=== PATIENT | male | born 1950 | race Caucasian/White ===

== ENCOUNTER → 2018-11-27 | Outpatient (CLI) | payer BC, MEDICARE | END | disposition home or self-care (01) | LOC: PLD 14:19 → LAB SHORT 14:19 | DX: D48.5 Neoplasm of uncertain behavior of skin (principal) | CPT/HCPCS: 88305 ==

== ENCOUNTER → 2019-05-28 | Outpatient (CLI) | payer BC, MEDICARE | END | disposition home or self-care (01) | LOC: LAB SHORT 11:41 → PLD 11:41 | DX: D22.5 Melanocytic nevi of trunk (principal) | CPT/HCPCS: 88305 ==

== ENCOUNTER 2019-10-10 16:37 | Observation (INO) | payer BC, MEDICARE ==
[~2019-10-10] VITALS: Ht 200.7 cm; Wt 125.1 kg
[2019-10-10] MEDS ORDERED: ELIQUIS5 M3 PO (16:47)
[2019-10-10] MEDS ORDERED: ESCI20 PO (16:47)
[2019-10-10] MEDS ORDERED: CENTRUM SILVER1 EAC2 PO (16:48)
[2019-10-10] MEDS ORDERED: DILT60ER PO (16:48)
[2019-10-10] MEDS ORDERED: TAMS.4ER PO (16:48)
[2019-10-10] MEDS ORDERED: ATOR40TA PO (16:48)
[2019-10-10 17:16] LABS: BASOPHILS ABSOLUTE AUTO 0.05 K/mm3 (0.00-0.23); BASOPHILS PERCENT AUTO 1 % (0-2); EOSINOPHILS ABSOLUTE AUTO 0.13 K/mm3 (0.00-0.68); EOSINOPHILS PERCENT AUTO 2 % (0-6); Hematocrit 46.9 % (37.0-53.0); Hemoglobin 15.3 g/dL (13.5-17.5); IMMATURE GRAN ABSOLUTE AUTO 0.03 K/mm3 (0.00-0.10); IMMATURE GRAN PERCENT AUTO 0 % (0-1); LYMPHOCYTES ABSOLUTE AUTO 2.68 K/mm3 (0.84-5.20); LYMPHOCYTES PERCENT AUTO 32 % (21-46); MONOCYTES ABSOLUTE AUTO 0.62 K/mm3 (0.16-1.47); MONOCYTES PERCENT AUTO 7 % (4-13); Mean Corpuscular HGB 30.4 pg (26.0-34.0); Mean Corpuscular HGB Conc 32.6 g/dL (31.5-36.5); Mean Corpuscular Volume 93 fL (80-100); Mean Platelet Volume 10.6 fL (9.1-12.4); NEUTROPHILS ABSOLUTE AUTO 4.85 K/mm3 (1.96-9.15); NEUTROPHILS PERCENT AUTO 58 % (41-73); Platelet Count 210 K/mm3 (150-400); RDW Coefficient Variation 12.9 % (11.7-14.2); RDW Standard Deviation 44.1 fL (35.1-46.3); Red Blood Cell Count 5.03 M/mm3 (4.30-5.90); White Blood Cell Count 8.36 K/mm3 (4.00-11.30)
[2019-10-10 17:31] LABS: International Normalized Ratio 1.13; Prothrombin Time Results 11.8 Sec (9.7-11.5)
[2019-10-10 17:39] LABS: Anion Gap 4 mmol/L (6-16); Blood Urea Nitrogen 21 mg/dL (8-24); Bun/Creatinine Ratio 20.2 (12.0-20.0); CO2, Blood 29 mmol/L (21-32); Calcium, Blood 9.1 mg/dL (8.5-10.1); Chloride, Blood 106 mmol/L (98-108); Creatinine, Blood 1.04 mg/dL (0.60-1.20); Glomerular Filtration Rate >60 (60-); Glucose, Blood 125 mg/dL (70-99); Potassium, Blood 3.8 mmol/L (3.5-5.5); Sodium, Blood 139 mmol/L (136-145)
--- NOTE | 2019-10-10 18:55 | NUR ---
PT ARRIVED TO VIA GURNEY. TNX'D TO BED INDEPENDENTLY. PT ORIENTED TO . PT'S DARIELA AT BEDSIDE. PT IS IN VERY GOOD SPIRITS, DENIES PAIN AT THIS TIME. PT ALERT/ORIENTED X3. ANSWERS ALL QUESTIONS APPROPRIATELY. MAEW. FOLLOWS COMMANDS. PT IS HYPERTENSIVE AT THIS TIME. REPORTS HE TOOK ALL HIS SCHEDULED MEDICATIONS THIS AM, BUT STILL NEEDS HE HS CARDIAC MEDS. A COPY OF THE MEDICATION LIST WAS TAKEN AND GIVEN TO LOGAN DURING REPORT HAND OFF. RT NECK CLEAN/DRY. ONLY SMALL SCAB OVER NAIL ENTRANCE SITE. NO BLEEDING/SWELLING/HEMATOMA NOTED AT THIS TIME. SITE SOFT/STABLE. 1909-REPORTED OFF TO LOGAN AND HE IS NOW ASSUMING CARE OF THIS PT.
--- NOTE | 2019-10-10 20:35 | NUR ---
ASSUMED CARE OF PT AT 1900. REPORT RECEIVED IN ROOM. PT PRESENTS IN ROOM STANDING AT BEDSIDE. NO ALTERATION IN GAIT. NO COMPROMISE TO AIRWAY OR SWALLOW AT THIS TIME. WOUND FROM PENETRATING INJURY NOT COVERED TO ALLOW OBSERVATION. PT ALERT AND ORIENTED. PLEASANT AND COOPERATIVE WITH CARE AND ASSESSMENT. DENIES PAIN AT THIS TIME. DOES HAVE ELEVATED BLOOD PRESSURE. AT BEDSIDE WHOM IS AN RN. BOTH PT AND [employer] DURING ASSESSMENT AND INTERVIEW. WILL REVIEW CHART AND PLAN OF CARE FOR THIS PT.
--- NOTE | 2019-10-11 | NUR ---
PT CONTINUES WITHOUT DYSPHAGIA. NO AIRWAY COMPROMISE. MINIMAL SWELLING AROUND PUNCTURE WOUND AT RIGHT SIDE OF NECK. PT ABLE TO HAVE CLEAR SPEACH PATTERN. WILL CONTINUE TO MONITOR.
--- NOTE | 2019-10-11 03:10 | NUR ---
ICE PACK PROVIDED EARLIER TO HELP DECREASE TENDERNESS OF WOUND SITE. REMAINS WITHOUT DEFICIT TO SWALLOW OR BREATHING.
== END 2019-10-11 09:35 | disposition home or self-care (01) ==
LOC: ER 16:37 → ICUW 16:38 → ICUE 18:57
PROVIDERS: Physician Assistant; ADMIT Surgery
DX: S11.94XA Puncture wound with foreign body of unspecified part of neck, initial encounter (principal); I48.91 Unspecified atrial fibrillation; I10 Essential (primary) hypertension; F41.9 Anxiety disorder, unspecified; C44.90 Unspecified malignant neoplasm of skin, unspecified; G89.29 Other chronic pain; M54.9 Dorsalgia, unspecified; Z79.01 Long term (current) use of anticoagulants; Z79.899 Other long term (current) drug therapy; W29.4XXA Contact with nail gun, initial encounter
CPT/HCPCS: 70498; 80048; 85025; 85610; 85730; 86850; 86900; 86901; 96372; 99285-25; G0378; Q9967

== ENCOUNTER → 2019-11-26 | Outpatient (CLI) | payer BC, MEDICARE ==
[~2019-11-26] MED LIST: ATOR40TA PO; CENTRUM SILVER1 EAC2 PO; DILT60ER PO; ELIQUIS5 M3 PO; ESCI20 PO; TAMS.4ER PO
== END | disposition home or self-care (01) ==
LOC: PLD 11:33 → LAB SHORT 11:33
DX: C44.612 Basal cell carcinoma of skin of right upper limb, including shoulder (principal)
CPT/HCPCS: 88305

== ENCOUNTER → 2020-01-23 | Outpatient (CLI) | payer BC, MEDICARE | END | disposition home or self-care (01) | LOC: LAB SHORT 13:11 → PLD 13:11 | DX: C44.612 Basal cell carcinoma of skin of right upper limb, including shoulder (principal); L81.4 Other melanin hyperpigmentation; L57.0 Actinic keratosis | CPT/HCPCS: 88305; 88342 ==

== ENCOUNTER → 2020-07-24 | Outpatient (CLI) | payer BC, MEDICARE | END | disposition home or self-care (01) | LOC: PLD 08:31 → LAB SHORT 08:31 | DX: D48.5 Neoplasm of uncertain behavior of skin (principal) | CPT/HCPCS: 88305 ==

== ENCOUNTER → 2021-07-27 | Outpatient (CLI) | payer BC, MEDICARE | END | disposition home or self-care (01) | LOC: LAB SHORT 11:18 | DX: D48.5 Neoplasm of uncertain behavior of skin (principal) | CPT/HCPCS: 88305 ==

== ENCOUNTER → 2022-01-25 | Outpatient (CLI) | payer BC, MEDICARE | END | disposition home or self-care (01) | LOC: LAB SHORT 11:19 → LAB 11:19 | DX: C44.519 Basal cell carcinoma of skin of other part of trunk (principal); L81.4 Other melanin hyperpigmentation | CPT/HCPCS: 88305 ==

== ENCOUNTER → 2022-07-27 | Outpatient (CLI) | payer BC, MEDICARE | LOC: PLD 11:32 → LAB SHORT 11:32 | DX: L82.1 Other seborrheic keratosis (principal); L57.8 Other skin changes due to chronic exposure to nonionizing radiation; C44.519 Basal cell carcinoma of skin of other part of trunk | CPT/HCPCS: 88305 ==

== ENCOUNTER → 2022-08-16 | Outpatient (CLI) | payer BC, MEDICARE | END | disposition home or self-care (01) | LOC: LAB SHORT 08:24 → PLD 08:24 | DX: C44.519 Basal cell carcinoma of skin of other part of trunk (principal) | CPT/HCPCS: 88305 ==

== ENCOUNTER 2023-02-26 16:01 | Emergency (ER) | payer BC, MEDICARE ==
[~2023-02-26] VITALS: Ht 200.7 cm; Wt 132.9 kg
[2023-02-26 16:36] LABS: Source, Urine Clean Catch
[2023-02-26 16:42] LABS: Appearance, Urine Clear (Clear); Bilirubin, Urine Neg (Neg); Blood, Urine Neg (Neg); Color, Urine Yellow (P-Yellow); Glucose Qualitative, Urine Neg (Neg); Ketones, Urine Neg (Neg); Leukocyte Esterase, Urine Neg (Neg); Nitrite, Urine Neg (Neg); Protein, Urine 1+ (Neg); Urobilinogen, Urine NORM (Normal)
[2023-02-26] MEDS ORDERED: TAMS.4ER PO (17:14)
[2023-02-26 17:15] VITALS: BP 151/83
== END 2023-02-26 17:30 | disposition home or self-care (01) ==
LOC: ER 16:01
PROVIDERS: Student in an Organized Health Care Education/Training Program
DX: R33.9 Retention of urine, unspecified (principal); Z79.899 Other long term (current) drug therapy; I10 Essential (primary) hypertension; I48.91 Unspecified atrial fibrillation
CPT/HCPCS: 51702; 51798; 99283-25

== ENCOUNTER → 2023-05-30 | Outpatient (CLI) | payer BC, MEDICARE ==
[~2023-05-30] MED LIST changes: +SULTRIDS PO
== END ==
LOC: LAB SHORT 08:44 → LAB 08:44
DX: N39.0 Urinary tract infection, site not specified (principal)
CPT/HCPCS: 87077; 87086; 87186

== ENCOUNTER 2023-08-26 06:57 | Day surgery (SDC) | payer BC, MEDICARE ==
[~2023-08-26] VITALS: Ht 200.7 cm; Wt 134.7 kg
[2023-08-26] VITALS (7 sets, daily range): BP systolic 113–135; BP diastolic 70–105
[~2023-08-26 06:57] MED LIST changes: +METO50ER PO
[2023-08-26] MEDS ORDERED: Aspir 8181 MG PO (07:24)
--- NOTE | 2023-08-26 08:30 | NUR ---
PT BACK TO RECOVERY ROOM VIA RECLINER AFTER PROCEDURE. AWAKE AND ALERT, DENIES ANY PAIN OR DISCOMFORT. VSS, CALL LIGHT IN REACH. RIGHT RADIAL SITE WITH PRELUDE BAND IN PLACE, NO BLEEDING OR SWELLING.
--- NOTE | 2023-08-26 09:31 | NUR ---
PT. FINISHED WITH BREAKFAST TRAY. TR BAND SITE WNL, NO HEMATOMA, NO BLEEDING. VSS.
--- NOTE | 2023-08-26 10:15 | NUR ---
RIGHT RADIAL PRELUDE BAND HAS BEEN FULLY DEFLATED. NO BLEEDING OR SWELLING NOTED AT SITE. PT CONTINUES TO VISIT WITH SPOUSE, DENIES PAIN OR DISCOMFORT. CALL LIGHT IN REACH.
--- NOTE | 2023-08-26 11:11 | NUR ---
DR SIFUENTES IN TO SEE PT PRIOR TO DISCHARGE, PT. VSS, TR BAND DEFLATED PER PROTOCOL. DISCHARGE INSTRUCTIONS DISCUSSED WITH PT AND . NO FURTHER QUESTIONS, TAKEN VIA WHEEL CHAIR TO EXIT. IV REMOVED WITH CATHETER INTACT. RADIAL SITE WNL, ARM BOARD IN PLACE.
== END 2023-08-26 11:52 | disposition home or self-care (01) ==
LOC: MHTC 06:57
DX: I25.10 Atherosclerotic heart disease of native coronary artery without angina pectoris (principal); I25.84 Coronary atherosclerosis due to calcified coronary lesion; I47.29 Other ventricular tachycardia; I48.20 Chronic atrial fibrillation, unspecified; I10 Essential (primary) hypertension; G47.33 Obstructive sleep apnea (adult) (pediatric); E78.5 Hyperlipidemia, unspecified; R73.03 Prediabetes; Z79.82 Long term (current) use of aspirin; Z79.01 Long term (current) use of anticoagulants; Z79.899 Other long term (current) drug therapy
CPT/HCPCS: 76937; 93458; 99152; 99153; C1769; C1894; J1644; J2250; J3010; J7030; J7050; Q9967

== ENCOUNTER → 2024-01-30 | Outpatient (CLI) | payer BC, MEDICARE ==
[~2024-01-30] MED LIST changes: +Aspir 8181 MG PO
== END | disposition home or self-care (01) ==
LOC: LAB 11:12 → LAB SHORT 11:12
DX: D22.39 Melanocytic nevi of other parts of face (principal)
CPT/HCPCS: 88305

== ENCOUNTER → 2024-02-29 | Outpatient (CLI) | payer BC, MEDICARE ==
[2024-02-29 11:16] LABS: Microalb/Creat Ratio UR, Rand 29.314 mg/g (0.000-30.000); Microalbumin, Random Urine 51.3 mg/L (0.000-20.000)
== END | disposition home or self-care (01) ==
LOC: LAB SHORT 08:04 → LAB 08:04
PROVIDERS: Family Medicine
DX: E11.42 Type 2 diabetes mellitus with diabetic polyneuropathy (principal)
CPT/HCPCS: 82043; 82570

== ENCOUNTER → 2024-09-30 | Outpatient (CLI) | payer BC, MEDICARE | LOC: LAB 12:21 → LAB SHORT 12:21 | DX: N39.0 Urinary tract infection, site not specified (principal) | CPT/HCPCS: 87086 ==

== ENCOUNTER → 2024-10-15 | Outpatient (CLI) | payer BC, MEDICARE | END | disposition home or self-care (01) | LOC: LAB SHORT 15:26 → LAB 15:26 | DX: N39.0 Urinary tract infection, site not specified (principal) | CPT/HCPCS: 87077; 87086; 87186 ==

== ENCOUNTER → 2024-10-30 | Outpatient (CLI) | payer MEDICARE | LOC: LAB SHORT 16:17 → LAB 16:17 | DX: N39.0 Urinary tract infection, site not specified (principal) | CPT/HCPCS: 87077; 87086; 87186 ==

== ENCOUNTER 2025-01-14 07:17 | Day surgery (SDC) | payer MEDICARE ==
[~2025-01-14] VITALS: Ht 200.7 cm; Wt 134.2 kg
[~2025-01-14 07:17] MED LIST changes: +Lactated Ringer's 1,000 ML IV SCH
[2025-01-14] MEDS ORDERED: propofoL 50 ML IV ONE (07:48)
[2025-01-14 08:09] VITALS: BP 153/94
--- NOTE | 2025-01-14 08:16 | NUR ---
Ambulatory in Day Surgery. History, Chart, Medications and Allergies reviewed before start of procedure. Lungs clear T/O to Auscultation. Patient confirms NPO status and agrees with scheduled surgery. Pre-Op teaching done. Pt verbalizes understanding. Patient States Post-Procedure ride home has been arranged.
--- NOTE | 2025-01-14 08:41 | NUR ---
01/14/25 0841 Bekah Esquivel History, Chart, Medications and Allergies reviewed before start of procedure. DR HASKINS FOR ANESTHESIA SE RECORDS
[2025-01-14 09:10] VITALS: BP 116/80
[2025-01-14 09:27] VITALS: BP 121/67
--- NOTE | 2025-01-14 09:28 | NUR ---
Discharge instructions reviewed with patient. Patient verbalizes understanding. Copy given to patient to take home. Discharged via wheelchair to private car for ride home. Patient up to Ambulate independently. Gait steady. ALL BELONGINGS RETURNED TO PATIENT.
== END 2025-01-14 23:03 | disposition home or self-care (01) ==
LOC: ORSCMMR 07:17 → ORD 08:30 → ORSCMMR 23:03
PROVIDERS: Internal Medicine Gastroenterology
PROC: 0DBK8ZX Excision of Ascending Colon, Via Natural or Artificial Opening Endoscopic, Diagnostic (ICD-10-PCS; principal; 2025-01-14 08:30)
PROC: 0DBN8ZX Excision of Sigmoid Colon, Via Natural or Artificial Opening Endoscopic, Diagnostic (ICD-10-PCS; principal; 2025-01-14 08:30)
PROC: 0DBH8ZX Excision of Cecum, Via Natural or Artificial Opening Endoscopic, Diagnostic (ICD-10-PCS; principal; 2025-01-14 08:30)
DX: Z12.11 Encounter for screening for malignant neoplasm of colon (principal); D12.0 Benign neoplasm of cecum; D12.2 Benign neoplasm of ascending colon; D12.5 Benign neoplasm of sigmoid colon; K57.30 Diverticulosis of large intestine without perforation or abscess without bleeding; I48.0 Paroxysmal atrial fibrillation; G47.33 Obstructive sleep apnea (adult) (pediatric); E78.00 Pure hypercholesterolemia, unspecified; Z79.01 Long term (current) use of anticoagulants; Z79.899 Other long term (current) drug therapy
CPT/HCPCS: 88305; J2704; J7120

== ENCOUNTER → 2025-02-19 | Outpatient (CLI) | payer MEDICARE ==
[~2025-02-19] MED LIST changes: -Lactated Ringer's 1,000 ML IV SCH
== END | disposition home or self-care (01) ==
LOC: LAB 12:36 → LAB SHORT 12:36
DX: N39.0 Urinary tract infection, site not specified (principal)
CPT/HCPCS: 87077; 87086; 87186

== ENCOUNTER → 2025-03-06 | Outpatient (CLI) | payer MEDICARE | LOC: LAB SHORT 07:00 → LAB 07:00 | DX: E11.29 Type 2 diabetes mellitus with other diabetic kidney complication (principal); E11.42 Type 2 diabetes mellitus with diabetic polyneuropathy; R80.8 Other proteinuria ==

== ENCOUNTER → 2025-06-22 | Outpatient (CLI) | payer MEDICARE | LOC: LAB 14:57 → LAB SHORT 14:57 | DX: N39.0 Urinary tract infection, site not specified (principal) | CPT/HCPCS: 87077; 87086; 87186 ==